=== PATIENT | female | born 1970 | race Two or more races ===

== ENCOUNTER 2024-10-18 12:03 | Emergency (ER) | payer OTHER ==
[~2024-10-18] VITALS: Ht 149.9 cm; Wt 59.0 kg
[2024-10-18] MEDS ORDERED: VITAMIN D310 MCG/1 M PO (13:05)
[2024-10-18] MEDS ORDERED: SYNTHROID112 MCG PO (13:05)
[2024-10-18] MEDS ORDERED: POVIDONE-IODINE SCRUB 118 ML BOTT TOP ONE (13:30)
[2024-10-18] MEDS ORDERED: LIDOCAINE HCL 1% 10ML VIAL PERCUT ONE (13:30)
== END 2024-10-18 16:20 | disposition home or self-care (01) ==
LOC: ER 12:03
DX: S01.82XA Laceration with foreign body of other part of head, initial encounter (principal); W22.8XXA Striking against or struck by other objects, initial encounter; Y93.89 Activity, other specified; Y92.89 Other specified places as the place of occurrence of the external cause; E05.80 Other thyrotoxicosis without thyrotoxic crisis or storm